=== PATIENT | female | born 1965 | race African-American/Black ===

== ENCOUNTER 2017-03-29 00:17 | Observation (INO) | payer OTHER ==
[~2017-03-29] VITALS: Ht 152.4 cm; Wt 80.5 kg
[~2017-03-29 00:17] MED LIST: BACTRIM,SEPT1 TABLET PO; MOTRIN600 MG PO; NAPROSYN500 MG PO; NORCO 7.5/321 TABLET PO; TYLENOL COLD &240 ML PO; ZOLOFT50 MG PO; ZYRTEC5 MG
[2017-03-29 00:53] LABS: HEMATOCRIT 40.3 % (36.0-46.0); MCH 28.4 PG (29.0-34.0); MCHC 33.5 G/DL (30.0-36.0); MCV 84.7 FL (83-99); PLATELET COUNT 335 K/uL (156-360); RBC DIS.WIDTH-CV 13.4 % (11.8-14.6); RBC DIS.WIDTH-SD 41.9 % (39-53); RED BLOOD COUNT 4.76 M/uL (3.80-5.20); WHITE BLOOD COUNT 11.6 K/uL (4.1-10.2)
[2017-03-29 01:15] LABS: CHLORIDE 111 mEq/L (99-109); POTASSIUM 3.6 mEq/L (3.7-5.4); SODIUM 143 mEq/L (136-147)
[2017-03-29 01:17] LABS: GLUCOSE 107 mg/dL (70-99)
[2017-03-29 01:18] LABS: ANION GAP 10 MEQ/L (2-14)
[2017-03-29 01:21] LABS: GFR ESTIMATE (CALCULATED) > 59 mL/min/; UREA NITROGEN (BUN) 16 mg/dL (9-23)
[2017-03-29 01:22] LABS: TROP-I INTERPRETATION NEGATIVE; TROPONIN-I < 0.01 ng/mL (0.0-0.30)
[2017-03-29 06:23] VITALS: BP 167/93
[2017-03-29 07:40] VITALS: BP 137/77
[2017-03-29 07:48] LABS: HDL CHOLESTEROL 43 MG/DL (Desirable>=50); LDL CHOLESTEROL 77 mg/dL (Desirable<100); NON-HDL CHOLESTEROL 109 mg/dL (Desirable<160); TOTAL CHOLESTEROL 152 mg/dL (Desirable<200); TRIGLYCERIDES 162 MG/DL (Normal: <150)
[2017-03-29 07:50] LABS: TROP-I INTERPRETATION NEGATIVE; TROPONIN-I < 0.01 ng/mL (0.0-0.30)
[2017-03-29] MEDS ORDERED: LYRICA75 MG PO (09:01)
[2017-03-29] MEDS ORDERED: HYDROCHLOROTHIA25 MG PO (09:01)
[2017-03-29] MEDS ORDERED: NITROSTAT0.4 MG SL (09:01)
[2017-03-29] MEDS ORDERED: NICORELIEF2 MG BC (09:01)
[2017-03-29] MEDS ORDERED: ATORVASTATIN CA80 MG PO (09:01)
[2017-03-29] MEDS ORDERED: LOPRESSOR25 MG PO (09:01)
[2017-03-29] MEDS ORDERED: ASPIRIN81 M2 PO (09:01)
[2017-03-29] MEDS ORDERED: LISINOPRIL40 MG PO (09:01)
[2017-03-29] MEDS ORDERED: ATORVASTATIN CA40 MG PO (09:10)
[2017-03-29 09:28] VITALS: BP 149/60
[2017-03-29 11:50] VITALS: BP 158/75
[2017-03-29 12:52] LABS: TROP-I INTERPRETATION NEGATIVE; TROPONIN-I < 0.01 ng/mL (0.0-0.30)
== END 2017-03-29 15:29 | disposition home or self-care (01) ==
LOC: EME 00:17 → EDOF 04:23 → 5WEST 06:09
PROVIDERS: Physician Assistant Medical
DX: R07.89 Other chest pain (principal); I16.0 Hypertensive urgency; I10 Essential (primary) hypertension; R51 Headache; J45.909 Unspecified asthma, uncomplicated; F32.9 Major depressive disorder, single episode, unspecified; G43.909 Migraine, unspecified, not intractable, without status migrainosus; G89.29 Other chronic pain; M54.5 Low back pain; M54.2 Cervicalgia; F17.210 Nicotine dependence, cigarettes, uncomplicated; E66.9 Obesity, unspecified; E78.5 Hyperlipidemia, unspecified; Z91.14 Patient's other noncompliance with medication regimen
CPT/HCPCS: 71020; 80048; 80061; 84484; 85027; 93005; 99281; 99284; G0378; J1650